=== PATIENT | male | born 1995 | race Native Hawaiian/Other Pacific Islander ===

== ENCOUNTER 2017-11-13 17:40 | Emergency (ER) | payer MEDICAID ==
[~2017-11-13] VITALS: Ht 185.4 cm; Wt 145.4 kg
[2017-11-13] MEDS ORDERED: SULFAMETHOX/TRIMETH DS 800-160 MG/TABLET PO ONE (20:00)
[2017-11-13] MEDS ORDERED: CEPHALEXIN MONOHYDRATE 500 MG CAPSULE PO ONE (20:00)
[2017-11-13 21:01] VITALS: BP 145/80
== END 2017-11-13 21:03 | disposition home or self-care (01) ==
LOC: EMS 17:41
DX: L03.115 Cellulitis of right lower limb (principal); I10 Essential (primary) hypertension
CPT/HCPCS: 99283

== ENCOUNTER 2020-12-09 13:26 | Emergency (ER) | payer MEDICAID ==
[~2020-12-09] VITALS: Ht 182.9 cm; Wt 104.5 kg
[2020-12-09] MEDS ORDERED: PSEU-191 PO (13:30)
[2020-12-09 15:29] LABS: COVID AG,FIA SOURCE NASOPHARYNGEAL
[2020-12-09] MEDS ORDERED: ALBUTEROL SULFATE HFA 90 MCG/PUFF 8 GM INHALER IH ONE (15:30)
[2020-12-09 16:23] LABS: INFLUENZA TYPE A NEGATIVE FOR TYPE A (NEGATIVE); INFLUENZA TYPE B NEGATIVE FOR TYPE B (NEGATIVE)
[2020-12-09 16:52] VITALS: BP 129/79
== END 2020-12-09 17:08 | disposition home or self-care (01) ==
LOC: EMS 13:35
DX: J40 Bronchitis, not specified as acute or chronic (principal); M79.10 Myalgia, unspecified site; I10 Essential (primary) hypertension; F17.210 Nicotine dependence, cigarettes, uncomplicated; Z20.822 Contact with and (suspected) exposure to COVID-19
CPT/HCPCS: 71045; 87804; 94640; 99285; J3535